=== PATIENT | female | born 1960 | race Caucasian/White ===

== ENCOUNTER → 2018-12-15 | Outpatient (CLI) | payer BC ==
--- NOTE | 2018-12-16 10:06 | MM ---
Reason for exam: screening (asymptomatic). Last mammogram was performed 1 year and 6 months ago. History: Patient is postmenopausal. Benign right mammotome panel of the right breast, April 08, 2010. Benign left US cyst aspiration of the left breast, April 07, 2008. Benign left US cyst aspiration of the left breast, May 20, 2005. Benign cyst aspiration of the left breast, March 2005. Benign cyst aspiration of the left breast, November 10, 2002. Benign stereotactic core biopsy of the right breast, November 10, 2002. Benign excisional biopsy of the left breast, May 12, 2000. Core biopsy of the right breast. Took hormonal contraceptives for 8 years beginning at age 18. Physical Findings: A clinical breast exam by your physician is recommended on an annual basis and results should be correlated with mammographic findings. MG Screening Mammo w CAD Bilateral CC and MLO view(s) were taken. Prior study comparison: June 10, 2017, bilateral MG screening mammo w CAD. June 03, 2016, bilateral MG screening mammo w CAD. The breast tissue is heterogeneously dense. This may lower the sensitivity of mammography. No suspicious abnormality. Bilateral biopsy markers. No significant changes when compared with prior studies. ASSESSMENT: Negative, BI-RAD 1 RECOMMENDATION: Routine screening mammogram of both breasts in 1 year.
== END | disposition home or self-care (01) ==
LOC: RADMAMWWP 08:44
PROVIDERS: ATTEND Obstetrics & Gynecology
DX: Z12.31 Encounter for screening mammogram for malignant neoplasm of breast (principal)
CPT/HCPCS: 77067

== ENCOUNTER → 2019-07-12 | Outpatient (CLI) | payer BC ==
[2019-07-12 07:53] LABS: Basophils % (A) 0 %; Eosinophils # (A) 0.1 k/uL (0-0.7); Eosinophils % (A) 1 %; HCT 40.9 % (34.0-46.0); HGB 13.7 gm/dL (11.4-16.0); Lymphocytes # (A) 1.6 k/uL (1.0-4.8); Lymphocytes % (A) 20 %; MCH 30.5 pg (25.0-35.0); MCHC 33.4 g/dL (31.0-37.0); MCV 91.2 fL (80.0-100.0); Mean Platelet Volume 7.5; Monocytes # (A) 0.4 k/uL (0-1.0); Monocytes % (A) 6 %; Neutrophils # (A) 5.8 k/uL (1.3-7.7); Neutrophils % (A) 72 %; Platelet Count 296 k/uL (150-450); RBC 4.49 m/uL (3.80-5.40); RDW 12.5 % (11.5-15.5); WBC 8.1 k/uL (3.8-10.6)
[2019-07-12 08:02] LABS: Appearance,Urine Clear (Clear); Bilirubin,Urine Negative (Negative); Blood,Urine Negative (Negative); Color,Urine Yellow; Glucose,Urine (UA) Negative (Negative); Ketones,Urine Negative (Negative); Leukocyte Esterase,Urine Small (Negative); Mucus,Urine Rare /hpf; Nitrite,Urine Negative (Negative); Protein,Urine Negative (Negative); RBC,Urine 2 /hpf (0-5); Specific Gravity,Urine 1.021 (1.001-1.035); Squamous Epithelial Cell,Urine 1 /hpf (0-4); Urobilinogen,Urine <2.0 mg/dL (<2.0); WBC,Urine 4 /hpf (0-5)
[2019-07-12 08:04] LABS: INR 0.9 (<1.2); Partial Thromboplastin Time 24.6 sec (22.0-30.0)
[2019-07-12 08:18] LABS: Potassium 4.8 mmol/L (3.5-5.1)
== END | disposition home or self-care (01) ==
LOC: LABPAT 07:05
PROVIDERS: ATTEND Orthopaedic Surgery Orthopaedic Surgery of the Spine
DX: Z01.812 Encounter for preprocedural laboratory examination (principal); M48.02 Spinal stenosis, cervical region
CPT/HCPCS: 36415; 80048; 81001; 85025; 85610; 85730

== ENCOUNTER 2019-07-20 06:23 | Day surgery (SDC) | payer OTHER, BC ==
[2019-07-19 08:42] VITALS: BMI 30.9
[~2019-07-20 06:23] MED LIST: DEXAMETHASONE SOD PHOSPHATE 10 MG/ML 1 ML VIAL IV ONE; LIDOCAINE 1% 20 ML VIAL (10MG/ML) FOR IV START INTRADERMA PRN; MIDAZOLAM 2 MG/2 ML VIAL IV PRN; ONDANSETRON 4 MG/2 ML VIAL IVP ONE; SCOPOLAMINE 1.5MG/72HR PATCH TRANSDERM ONE
[2019-07-20] MEDS: LACTATED RINGERS 1,000 ML IV SCH ×2 (06:47→23:29)
[2019-07-20] MEDS ORDERED: DEXAMETHASONE SOD PHOS (MDV) 100 MG/10 ML VIAL ONE (07:26)
[2019-07-20] MEDS ORDERED: diphenhydrAMINE 50 MG/ML 1 ML VIAL ONE (07:26)
[2019-07-20] MEDS ORDERED: fentaNYL (PF) 50 MCG/ML 2 ML AMP ONE (07:26)
[2019-07-20] MEDS ORDERED: ePHEDrine SULFATE/0.9% NACL/PF 50 MG/5 ML SYRINGE IV ONE (07:26)
[2019-07-20] MEDS ORDERED: METOPROLOL TARTRATE 5 MG/5 ML VIAL IVP ONE (07:26)
[2019-07-20] MEDS ORDERED: PROPOFOL 10 MG/ML 20 ML VIAL IV ONE (07:26)
[2019-07-20] MEDS ORDERED: ROCURONIUM BROMIDE 10 MG/ML 10 ML VIAL IV ONE (07:26)
[2019-07-20] MEDS ORDERED: MIDAZOLAM 2 MG/2 ML VIAL ONE (07:26)
[2019-07-20] MEDS ORDERED: LIDOCAINE 1% INJ 10MG/ML (20 ML MDV) ONE (07:26)
[2019-07-20] MEDS ORDERED: SUCCINYLCHOLINE CHLORIDE 100 MG/5 ML SYR IV ONE (07:26)
[2019-07-20] MEDS ORDERED: LIDOCAINE 0.5%-EPI 1:200,000 50 ML VIAL SQ ONE (07:59)
[2019-07-20] MEDS ORDERED: BACITRACIN 50,000 UNIT, POLYMYXIN B 500,000 UNIT in SODIUM CHLORIDE 0.9% IRRIGATIO 1,00... IRRIGATION ONE (08:00)
[2019-07-20] MEDS ORDERED: THROMBIN (BOVINE) 5,000 UNIT VIAL TOPICAL ONE (08:08)
[2019-07-20] MEDS ORDERED: GELATIN SPONGE,ABSORB (LARGE) 1 EACH SPONGE TOPICAL ONE (08:09)
--- NOTE | 2019-07-20 08:44 | XR ---
EXAMINATION TYPE: XR cervical spine 1V DATE OF EXAM: 07/20/2019 COMPARISON: NONE HISTORY: Needle placement. Localization. TECHNIQUE: Intraoperative single crosstable lateral view of the cervical spine for needle placement. FINDINGS: Needle localization of the C5-C6 intervertebral disc level from an anterior approach is see n. Grade 1 anterolisthesis of C4 on C5. Degenerative disc disease at C5-C6. Patient is noted to be in tubated. Vertebral body heights are maintained. IMPRESSION: Needle localization at the C5-C6 intervertebral disc level.
[2019-07-20] MEDS ORDERED: LACTATED RINGERS 1,000 ML IV ONE (09:14)
[2019-07-20] MEDS ORDERED: MAGNESIUM HYDROXIDE 2,400 MG/10 ML CUP PO PRN (09:41)
[2019-07-20] MEDS ORDERED: BENZOCAINE/MENTHOL LOZENG 1 EACH LOZENGE MUCOUS MEM PRN (09:41)
[2019-07-20] MEDS ORDERED: HYDROmorphone 0.5 MG/0.5 ML SYRINGE IVP PRN (09:41)
[2019-07-20] MEDS ORDERED: HYDROmorphone 1 MG/ML 1 ML SYRINGE IVP PRN (09:41)
[2019-07-20] MEDS ORDERED: ONDANSETRON 4 MG/2 ML VIAL IVP PRN (09:42)
[2019-07-20] MEDS ORDERED: MAG HYDROX/AL HYDROX/SIMETH 30 ML CUP PO PRN (09:42)
[2019-07-20] MEDS ORDERED: ACETAMINOPHEN TAB 325 MG TAB PO PRN (09:42)
--- NOTE | 2019-07-20 09:46 | P.OP ---
Date of Procedure: 07/20/19 Preoperative Diagnosis: Cervical stenosis C4 5 C5 6 C6 7, herniated nucleus pulposus C4 5 C5 6 C6 7, spondylolisthesis C4 5, degenerative disc disease C4 5 C5 6 C6 7, upper extremity radiculopathy with left upper extremity weakness Postoperative Diagnosis: Cervical stenosis C4 5 C5 6 C6 7, herniated nucleus pulposus C4 5 C5 6 C6 7, spondylolisthesis C4 5, degenerative disc disease C4 5 C5 6 C6 7, upper extremity radiculopathy with left upper extremity weakness Anesthesia: GETA Pathology: none sent Condition: stable Disposition: PACU Description of Procedure: BRIEF OPERATIVE NOTE Preoperative Diagnosis:Cervical stenosis C4 5 C5 6 C6 7, herniated nucleus pulposus C4 5 C5 6 C6 7, spondylolisthesis C4 5, degenerative disc disease C4 5 C5 6 C6 7, upper extremity radiculopathy with left upper extremity weakness Postoperative Diagnosis:Cervical stenosis C4 5 C5 6 C6 7, herniated nucleus pulposus C4 5 C5 6 C6 7, spondylolisthesis C4 5, degenerative disc disease C4 5 C5 6 C6 7, upper extremity radiculopathy with left upper extremity weakness Procedure: Anterior cervical decompression with discectomy and fusion C4 5 C5 6 C6 7 Placement of interbody graft C4 5 C5 6 C6 7 Application of anterior cervical plate C4 5 6 and 7 Surgeon: Dr. Penaloza Tutoring Clinician: Irma Ny is present throughout the entire the case persistence during positioning, dissection, exposure, visualization, and all crucial elements of the case as well as closure. Anesthesia: General anesthesia Estimated blood loss: Approximately 50 mL Complications: None apparent Components implanted: K2M Melvin anterior cervical plate system with Vikos interbody allograft bone graft and 1 mL of DBX bone putty Disposition: To recovery room in good stable condition. OPERATIVE INDICATIONS The patient has had long-standing issues in their neck and upper extremities. She has been having worsening symptoms at her neck and her upper extremity is particularly on the left side. She has been developing some weakness at her left upper extremity as well. She's found to have severe cervical degenerative changes with stenosis at C4 5 C5 6 and C6 7 with degenerative disc disease and listhesis at C4 5. These findings correlate well with her neck and upper extremity symptoms. The patient has been through conservative treatment. We discussed various treatment options including surgery, and the patient wishes to proceed with surgery We discussed the risk, patient's alternatives and benefits of surgery including but not limited to, risk of bleeding risk of infection, risk of need for further surgery, risk of decreased, loss of motion, muscle function, malunion nonunion, hardware failure, nerve damage, paralysis, heart attack, and . OPERATIVE SUMMARY After discussing all the risks, patient alternatives and benefits at length, the patient elected to proceed with surgical intervention, signed informed consent, and presented for their procedure. The patient was seen and examined in the preoperative holding area and the surgical site was marked. The patient was given antibiotics and brought to the operating room. The patient was positioned on the operating room table in a supine position being careful to pad any bony prominences and pressure points. The patient was sedated and intubated by anesthesia in standard fashion. Once the airway and C- spine were stabilized the patient's arms were padded and tucked at her side, with her shoulders gently taped. The head was placed in a donut pad with the neck in good neutral alignment and position. We were careful to maintain the patient's cervical spine and good neutral alignment and position throughout. The patient was prepped and draped in a normal standard fashion. An appropriate timeout and keystone protocol performed. We were able to proceed with the surgery. The local wound area was infiltrated with local anesthetic. An incision was made transversely approximately 2-1/2 cm over the appropriate levels at C5 6 on the right. Dissection was taken down subcutaneously to the level of the platysma which was split in line with its fibers. Dissection was taken with a carotid approach, with the trachea and esophagus medial and the carotid sheath laterally. We dissected down to the anterior surface of the vertebral bodies. Intraoperative x-ray was taken which showed a marker at the appropriate level at C5 6. With the appropriate level positively confirmed, we were able to proceed with discectomy at the appropriate levels. All of the operative levels were exposed appropriately. The patient had all their twitches back, and there was no evidence of recurrent laryngeal issue. The wound was copiously irrigated and suctioned dry as had been done periodically throughout the case. At the appropriate level/levels, starting at C6 7 and then removing C5 6 and then to C4 5 I established an annulotomy with an 11 blade scalpel. A discectomy was performed with a combination of pituitary rongeurs, curettes, a high-speed bur, and Kerrison rongeurs. The posterior longitudinal ligament was taken down as were any posterior osteophytes. Note was made of significant central and bilateral foraminal stenosis at each of the levels. This was remedied with the decompression. This gave good central and bilateral foraminal decompression. There is no evidence of any dural tear or leak. The endplates were prepared with a high-speed bur. With the endplates in good parallel position, I was able to size for the appropriate size interbody graft. The w ound was irrigated and suctioned dry the graft was prepared and malleted into position. It had good alignment and position with the anterior surface flush with the anterior surface of the vertebral bodies. This was done similarly the appropriate levels at C6 7 C5 6 and then at C4 5. With the grafts intact, I was able to measure and contour and appropriate sized plate. The plate was positioned at the midline over the appropriate levels at C4 5 6 and 7. Screw holes were established with a hand drill and drill guide. Screws were placed in good alignment and position with excellent bony purchase. They were seated under the locking device. The construct was checked and found to be stable. Intraoperative x-ray was taken which showed good alignment and position of the implants at the appropriate levels. There was no evidence of any dural tear or leak. Good hemostasis was maintained. The wound was copiously irrigated and suctioned dry as had been done periodically throughout the case. The platysma was closed with absorbable suture. The subcutaneous tissue was closed. The subcuticular tissue was closed with absorbable suture. The wound was cleaned and dried and dressed appropriately. A soft cervical collar was placed appropriately. The patient was woken up by anesthesia, extubated, transferred back gently to their hospital bed and brought to the recovery room in good stable condition. The patient will be admitted to the hospital for appropriate postoperative care, medical management and monitoring. We will continue to follow them closely about the postoperative course.
[2019-07-20] MEDS ORDERED: hydrALAZINE HCL 20 MG/ML 1 ML VIAL IV ONE (09:55)
[2019-07-20] MEDS: HYDROmorphone 0.5 MG/0.5 ML SYRINGE IVP PRN ×5 (10:00→23:36)
--- NOTE | 2019-07-20 10:01 | XR ---
EXAMINATION TYPE: XR cervical spine 1V DATE OF EXAM: 07/20/2019 COMPARISON: NONE HISTORY: Postsurgical assessment. TECHNIQUE: Single crosstable lateral view of the cervical spine. FINDINGS: Anterior cervical fusion device spans the C4-C7 vertebral levels with intervertebral disc c ages seen. Patient is intubated and exam's intraoperative. Alignment is maintained. IMPRESSION: Anterior cervical fusion device from C4 through C7. Alignment is maintained.
[2019-07-20] MEDS: SODIUM CHLORIDE 0.9% 1,000 ML IV SCH ×2 (11:46→19:10)
[2019-07-20] MEDS: HYDROcodone/APAP 5-325MG 1 EACH TAB PO PRN ×2 (15:24→19:09)
[2019-07-21] MEDS: HYDROcodone/APAP 5-325MG 1 EACH TAB PO PRN (05:37)
[2019-07-21 07:09] VITALS: BP 127/68; PULSE 57; RESP 16; TEMP 97.9
--- NOTE | 2019-07-21 09:15 | P.DS ---
Providers Date of admission: 07/20/19 Attending physician: Chelsie Penaloza Primary care physician: [facility] Hospital Course: The patient presented on the day of admission as per their operative note. She had significant cervical stenosis with disc herniation and a spondylolisthesis with upper extremity radiculopathy in a [place] underwent her surgical procedure as per operative note. Physical Exam The incision site is clean dry and intact. There is no erythema no drainage. There is no purulence no evidence of infection. The dressing is clean and dry there is no significant swelling. Abdomen soft and nontender. Chest has good excursion with deep inspiration and expiration. The patient has active and passive range of motion intact at the upper and lower extremities. There is no acute change in neurologic status. She has good motion at her upper extremities bilaterally Hospital Course Postoperative day #1 status post anterior cervical decompression with discectomy and fusion C4 5 C5 6 and C6 7 for her cervical stenosis with upper extremity r adiculopathy The patient has been making good progress postoperatively. She feels her upper extremity is are already making improvement since her surgery. They have completed the prophylactic antibiotics without any signs or symptoms of infection. The patient has been able to advance their diet, and is tolerating diet adequately. The pain was initially controlled with IV medications and is now controlled appropriately with oral medications. The patient has been able to increase their mobilization. The patient has progressed appropriately. I think they are in good stable condition for discharge today. They will be sent home with appropriate prescriptions. I answered their questions to the best of my ability in a language that they can understand and they are agreeable with the plan. They will follow up as directed. Patient Condition at Discharge: Good Plan - Discharge Summary Discharge Rx Participant: Yes New Discharge Prescriptions: New HYDROcodone/APAP 5-325MG [[facility]] 1 each PO Q6HR PRN #28 tab PRN Reason: Pain Discharge Medication List HYDROcodone/APAP 5-325MG [[facility]] 1 each PO Q6HR PRN #28 tab 07/20/19 [Rx] Follow up Appointment(s)/Referral(s): Chelsie Penaloza DO [Doctor of Osteopathic Medicine] - 2 Weeks Activity/Diet/Wound Care/Special Instructions: Keep site clean. May shower with waterproof Tegaderm intact. Do not soak in a tub. After 72 hours postoperatively, patient May remove dressing and then may shower with area uncovered. Leave Steri-Strips intact and allow them to fray off on their own. May ambulate as tolerated. Avoid heavy or rigorous activity. No repetitive bending twisting or lifting. No overhead work.
== END 2019-07-21 09:48 | disposition home or self-care (01) ==
LOC: OR 06:23 → 4SSUR 10:01 → OR 16:21 → 4SSUR 16:41 → OR 07-21 09:48
PROVIDERS: ATTEND Orthopaedic Surgery Orthopaedic Surgery of the Spine
DX: M50.123 Cervical disc disorder at C6-C7 level with radiculopathy (principal); M43.12 Spondylolisthesis, cervical region; M48.02 Spinal stenosis, cervical region; Q79.1 Other congenital malformations of diaphragm; N39.0 Urinary tract infection, site not specified; Z79.1 Long term (current) use of non-steroidal anti-inflammatories (NSAID); R00.1 Bradycardia, unspecified; Z83.3 Family history of diabetes mellitus; Z82.49 Family history of ischemic heart disease and other diseases of the circulatory system; Z90.49 Acquired absence of other specified parts of digestive tract; Z87.891 Personal history of nicotine dependence; Z79.2 Long term (current) use of antibiotics
CPT/HCPCS: 86900; 86901; 86850; 72020; 22551; 22552 ×2; 22845; 20931; C1713 ×2; C1762 ×2; J0360; J0690; J2405; J1170

== ENCOUNTER → 2021-11-27 | Outpatient (CLI) | payer BC ==
--- NOTE | 2021-11-28 13:03 | MM ---
Reason for exam: screening (asymptomatic). Last mammogram was performed 2 years and 11 months ago. History: Patient is postmenopausal. Benign right mammotome panel of the right breast, April 08, 2010. Benign left US cyst aspiration of the left breast, April 07, 2008. Benign left US cyst aspiration of the left breast, May 20, 2005. Benign cyst aspiration of the left breast, March 2005. Benign cyst aspiration of the left breast, November 10, 2002. Benign stereotactic core biopsy of the right breast, November 10, 2002. Benign excisional biopsy of the left breast, May 12, 2000. Core biopsy of the right breast. Took hormonal contraceptives for 8 years beginning at age 18. Physical Findings: A clinical breast exam by your physician is recommended on an annual basis and results should be correlated with mammographic findings. MG 3D Screening Mammo W/Cad Bilateral CC and MLO view(s) were taken. Prior study comparison: December 15, 2018, bilateral MG screening mammo w CAD. June 10, 2017, bilateral MG screening mammo w CAD. The breast tissue is heterogeneously dense. This may lower the sensitivity of mammography. There are benign appearing round calcifications bilaterally. Previous mammotome biopsy in the right breast x 2 and in the left breast. There is chronic nodularity bilaterally. ASSESSMENT: Benign, BI-RAD 2 RECOMMENDATION: Routine screening mammogram of both breasts in 1 year.
== END | disposition home or self-care (01) ==
LOC: RADMAMWWP 09:42
PROVIDERS: ATTEND Family Medicine
DX: Z12.31 Encounter for screening mammogram for malignant neoplasm of breast (principal); Z78.0 Asymptomatic menopausal state
CPT/HCPCS: 77063; 77067

== ENCOUNTER → 2023-09-21 | Outpatient (CLI) | payer MEDICARE ==
--- NOTE | 2023-09-21 13:10 | MM ---
Reason for Exam: Screening (asymptomatic). Last mammogram was performed 1 year(s) and 10 month(s) ago. Patient History: Menarche at age 10. First Full-Term at age 21. Postmenopausal. Hormonal Contraceptives, starting at age 18 for 8 years. 03/2005, Benign Cyst Aspiration on the left side. Core Biopsy on the Right side. 04/08/2010, Benign Core Biopsy on the right side. 04/07/2008, Benign Cyst Aspiration on the left side. 05/20/2005, Benign Cyst Aspiration on the left side. 11/10/2002, Benign Stereotactic Core Biopsy on the right side. 11/10/2002, Benign Cyst Aspiration on the left side. 05/12/2000, Benign Excisional Biopsy on the left side. Risk Values: Sarah 5 year model risk: 2.2%. NCI Lifetime model risk: 8.3%. Prior Study Comparison: 06/10/2017 Bilateral Screening Mammogram, [facility]. 12/15/2018 Bilateral Screening Mammogram, [facility]. 11/27/2021 Bilateral Screening Mammogram, [facility]. Tissue Density: There are scattered fibroglandular densities. Findings: Analyzed By CAD. Bilateral breast biopsy clips. There is no suspicious group of microcalcifications or new suspicious mass. Overall Assessment: Benign, BI-RAD 2 Management: Screening Mammogram of both breasts in [address] [facility] will attempt to contact patient to return for supplemental views and ultrasound if indicated. Patient should continue monthly self-breast exams. A clinical breast exam by your physician is recommended on an annual basis. This exam should not preclude additional follow-up of suspicious palpable abnormalities. Note on Sarah scores and lifetime risk: 1. A Sarah score greater than 3% is considered moderate risk. If this is the case, consider specialist referral to assess eligibility for a risk reducing agent. 2. If overall lifetime risk for the development of breast cancer is 20% or higher, the patient may qualify for future screening with alternating mammogram and breast MRI. Electronically signed and approved by: Darryl Nettles DO
== END | disposition home or self-care (01) ==
LOC: RADMAMWWP 12:26
PROVIDERS: ATTEND Family Medicine
DX: Z12.31 Encounter for screening mammogram for malignant neoplasm of breast (principal); Z78.0 Asymptomatic menopausal state
CPT/HCPCS: 77063; 77067